=== PATIENT | female | born 1945 | race Caucasian/White ===

== ENCOUNTER 2018-08-24 13:52 | Emergency (ER) | payer MEDICAID, MEDICARE ==
[2018-08-24] MEDS: Ketorolac INJ* 30 MG/ML 1 ML VIAL IM ONE (15:32)
[2018-08-24] MEDS: predniSONE TAB* 20 MG PO ONE (15:35)
[2018-08-24] MEDS: Cyclobenzaprine TAB* 10 MG PO ONE (15:38)
--- NOTE | 2018-08-24 16:42 | ED ---
Lower Extremity - HPI Summary HPI Summary: pt has known arthritis to back and hips. she presents for evaluation of her lower ext pain. she denies any bowel or bladder incontinence. she denies any saddle paresthesias. she uses a walker. she is here at with her sister - History of Current Complaint Chief Complaint: UCBackPain Stated Complaint: LEFT HIP PAIN Hx Obtained From: Patient, Family/Fire Officer Mechanism Of Injury: Other - no trauma Severity Initially: Mild Severity Currently: Mild Pain Intensity: 10 Timing: Constant Character Of Pain: Aching - Allergies/Home Medications Allergies/Adverse Reactions: Allergies Allergy/AdvReac Type Severity Reaction Status Date / Time Adhesive Tape Allergy Rash Verified 08/24/18 14:19 morphine Allergy Nausea And Verified 08/24/18 14:19 Vomiting Home Medications: Home Medications Acetaminophen [Tylenol Extra Strength] 2 tab PO Q6HR 08/24/18 [History Confirmed 08/24/18] Aspirin 1 tab PO BEDTIME 08/24/18 [History Confirmed 08/24/18] Biotin 1 tab PO DAILY 08/24/18 [History Confirmed 08/24/18] Enalapril Maleate [Vasotec] 5 mg PO DAILY 08/24/18 [History Confirmed 08/24/18] Furosemide TAB* [Lasix TAB*] 1 tab PO DAILY 08/24/18 [History Confirmed 08/24/18 ] Lactobacillus Rhamnosus R0011 [Probiotic Digestive Care] 2 tab PO DAILY [History Confirmed 08/24/18] Melatonin [Melatin] 1 tab PO BEDTIME 08/24/18 [History Confirmed 08/24/18] Oxybutynin TAB* [Ditropan TAB*] 1 tab PO BID 08/24/18 [History Confirmed ] Pantoprazole TAB * [Protonix TAB*] 1 tab PO DAILY 08/24/18 [History Confirmed ] methIMAzole [Methimazole] 0.5 tab PO DAILY 08/24/18 [History Confirmed 08/24/18] PMH/Surg Hx/FS Hx/Imm Hx Previously Healthy: Yes Endocrine/Hematology History: Reports: Hx Thyroid Disease - hypothyroid Cardiovascular History: Reports: Hx Hypertension - Cancer History Cancer Type, Location and Year: skin cancer - pt can't remember the name of it. - Surgical History Surgery Procedure, Year, and Place: splenectomy, , total knee replacement, bilateral carpel tunnel, hernia repair, cholecystecomy, bilateral cataracts. Infectious Disease History: No Infectious Disease History: Denies: Traveled Outside the [place] in Last 30 Days - Social History Alcohol Use: None Substance Use Type: Reports: None Smoking Status (MU): Never Smoked Tobacco Review of Systems Constitutional: Negative Eyes: Negative ENT: Negative Cardiovascular: Negative Respiratory: Negative Gastrointestinal: Negative Negative: burning, dysuria, flank pain Positive: Arthralgia, Myalgia Skin: Negative Neurological: Negative Psychological: Normal All Other Systems Reviewed And Are Negative: No Physical Exam Triage Information Reviewed: Yes Vital Signs On Initial Exam: Initial Vitals Temp Pulse Resp BP Pulse Ox 99.2 F 70 20 134/52 96 08/24/18 14:10 08/24/18 14:10 08/24/18 14:10 08/24/18 14:10 08/24/18 14:10 Vital Signs Reviewed: Yes Appearance: Positive: Well-Appearing, No Pain Distress, Well-Nourished Skin: Positive: Warm, Dry Eyes: Positive: Normal, EOMI ENT: Positive: Hearing grossly normal Neck: Positive: Supple, Nontender Respiratory/Lung Sounds: Positive: Clear to Auscultation, Breath Sounds Present Cardiovascular: Positive: Normal, RRR Abdomen Description: Positive: Nontender, Soft Bowel Sounds: Positive: Present Musculoskeletal: Positive: Other - slight tenderness to paraspinal muscles to lower lumbar region Neurological: Positive: Normal, Sensory/Motor Intact, Alert, Oriented to Person Place, Time, CN Intact II-III Psychiatric: Positive: Normal AVPU Assessment: Alert Diagnostics - Vital Signs Vital Signs Temp Pulse Resp BP Pulse Ox 08/24/18 14:10 99.2 F 70 20 134/52 96 - Laboratory Lab Statement: Any lab studies that have been ordered have been reviewed, and results considered in the medical decision making process. Lower Extremity Course/Dx - Course Course Of Treatment: xrays of left hip and pelvis show no acute findings. pt given medications for pain. pt feeling better pt encouraged to f/u with pcp and ortho. - Diagnoses Provider Diagnoses: Osteoarthritis Discharge - Sign-Out/Discharge Documenting (check all that apply): Patient Departure All imaging exams completed and their final reports reviewed: Yes - Discharge Plan Condition: Stable Disposition: HOME Prescriptions: Cyclobenzaprine TAB* [Flexeril 10 MG TAB*] 10 mg PO TID #30 tab predniSONE TAB* [Deltasone 20 MG TAB*] 40 mg PO DAILY #10 tab Patient Education Materials: Osteoarthritis (DC) Referrals: No Primary Care Phys,NOPCP [Primary Care Provider] - [facility] [Provider Group] Additional Instructions: please follow up with your doctor and discuss your arthritis. I would also strongly encourage you to f/u with your orthopedic surgeon in [place]. return if worse or any new symptoms. - Billing Disposition and Condition Condition: STABLE Disposition: Home
== END 2018-08-24 16:50 | disposition home or self-care (01) ==
LOC: UCCORT 13:52
DX: M16.0 Bilateral primary osteoarthritis of hip (principal); Z88.5 Allergy status to narcotic agent; I10 Essential (primary) hypertension
CPT/HCPCS: 96372; 99202; A9270-GY; G0463; J1885; J7512